=== PATIENT | female | born 1945 | race African-American/Black ===

== ENCOUNTER 2024-10-25 14:14 | Emergency (ER) | payer BC, MEDICARE ==
[~2024-10-25] VITALS: Ht 167.6 cm; Wt 89.0 kg
[~2024-10-25 14:14] MED LIST: AMLO10TA80 PO; ASPI-1160 PO; ATOR20TA PO; LOSA50TA41 PO
[2024-10-25 14:17] VITALS: O2SAT 99
[2024-10-25 15:21] LABS: BASOPHILS % 0.7 % (0.0-2.0); EOSINOPHILS % 0.7 % (0.0-5.0); HEMATOCRIT. 40.4 % (36.0-48.0); HEMOGLOBIN. 13.3 g/dL (12.0-16.0); LYMPHOCYTES % 20.3 % (20.0-50.0); MEAN PLATELET VOLUME 10.0 fl (7.4-10.4); MONOCYTES % 4.9 % (2.0-8.0); NEUTROPHILS % 73.4 % (40.0-76.0); PLATELET 266 x1000/uL (130-400); RED BLOOD CELL COUNT 4.27 mill/uL (4.2-5.4); RED CELL DISTRIBUTION WIDTH 13.3 % (11.6-14.6)
[2024-10-25 15:36] LABS: UREA NITROGEN BLOOD 20 mg/dL (9-23)
[2024-10-25 15:37] LABS: ETHANOL BLOOD < 10 mg/dL (<10)
[2024-10-25 15:39] LABS: CREATININE 1.8 mg/dL (0.6-1.0)
[2024-10-25 16:37] LABS: *AMPHETAMINES SCREEN URINE NEGATIVE (NEGATIVE); *BARBITURATES SCREEN URINE NEGATIVE (NEGATIVE); *BENZODIAZEPINES SCREEN URINE NEGATIVE (NEGATIVE); *COCAINE SCREEN URINE NEGATIVE (NEGATIVE); CANNABINOID URINE SCREEN NEGATIVE (NEGATIVE); ECSTASY MDMA SCREEN URINE NEGATIVE (NEGATIVE); METHADONE URINE SCREEN NEGATIVE (NEGATIVE); OPIATES URINE SCREEN NEGATIVE (NEGATIVE); PHENCYCLIDINE URINE SCREEN NEGATIVE (NEGATIVE)
[2024-10-25 23:38] LABS: CLARITY URINE CLEAR (CLEAR); COLOR URINE YELLOW (YELLOW); GLUCOSE URINE NEGATIVE (NEGATIVE); KETONES URINE NEGATIVE (NEGATIVE); LEUKOCYTE ESTERASE URINE TRACE (NEGATIVE); NITRITE URINE NEGATIVE (NEGATIVE); OCCULT BLOOD URINE NEGATIVE (NEGATIVE); PH URINE 5.5 (4.5-8.0); PROTEIN URINE NEGATIVE (NEGATIVE); SPECIFIC GRAVITY URINE 1.013 (1.005-1.030); UROBILINOGEN URINE 1.0 E.U./dL (0.2-1.0)
[2024-10-25 23:58] LABS: BACTERIA URINE TRACE; RBC URINE 0-2 /hpf (0-2); SQUAMOUS EPITHELIAL CELL URINE FEW /lpf (RARE/1+)
[2024-10-26] MEDS: AMLODIPINE 10MG TABLET PO SCH (09:27)
[2024-10-26] MEDS ORDERED: HYDROXYZINE 25MG TABLET PO PRN (09:45)
[2024-10-26] MEDS: SERTRALINE HCL 25MG TABLET PO SCH (11:13)
[2024-10-26] MEDS: CLONIDINE 0.1MG TABLET PO ONE (21:30)
[2024-10-26] MEDS: HYDRALAZINE HCL 10MG TABLET PO ONE (21:30)
[2024-10-27 14:00] VITALS: TEMP 35.8
[2024-10-27 15:44] VITALS: BP 131/62; PULSE 83; RESP 16; O2SAT 100
[2024-10-27] MEDS: CLONIDINE 0.1MG TABLET PO ONE (16:12)
== END 2024-10-27 16:53 ==
LOC: ER 14:14
DX: R45.851 Suicidal ideations (principal); I10 Essential (primary) hypertension; E78.5 Hyperlipidemia, unspecified; Z79.82 Long term (current) use of aspirin; Z79.899 Other long term (current) drug therapy; Z86.73 Personal history of transient ischemic attack (TIA), and cerebral infarction without residual deficits; Z20.822 Contact with and (suspected) exposure to COVID-19; Z98.890 Other specified postprocedural states; Z88.8 Allergy status to other drugs, medicaments and biological substances
CPT/HCPCS: 36415; 80048; 80305; 80307; 80320; 80329; 81003; 85025; 87426; 93005; 99285; G0480